=== PATIENT | male | born 1960 | race Caucasian/White ===

== ENCOUNTER 2020-08-22 19:02 | Emergency (ER) | payer BC ==
[2020-08-22] MEDS ORDERED: Sodium Chloride 0.9% 1,000 ML IV ONE (19:58)
[2020-08-22] MEDS ORDERED: Ondansetron 4 MG/2 ML SDV IVPUSH ONE (19:58)
--- NOTE | 2020-08-23 01:43 | EDM.PDOC ---
ED HPI GENERAL MEDICAL PROBLEM - General Chief Complaint: General Stated Complaint: PAIN LEVEL DUE TO CANCER Time Seen by Provider: 08/22/20 19:20 Source of Information: Reports: Patient, RN History Limitations: Reports: No Limitations - History of Present Illness INITIAL COMMENTS - FREE TEXT/NARRATIVE: ED with c/o generalized cancer pain. Primary prostate cancer with mets to bone. Has hydromorphone liquid but has not taken for past 3 days. States seen in clinic in [place] by PCP this am and was told should be admitted but declined at that time. Primary Oncologist in [place]. Requesting to be transferred to [facility] s not want to be admitted here. Last took Zofran for nausea this am. Is not out of medication yet . Admits drinking pint ETOH daily "to help with pain". No fever or chills. Reports fell out of bed 2 days ago, hit head on bedside table Denies loss of consciousness. Generalized Pain Score (Numeric/FACES): 7 - Related Data Allergies Allergy/AdvReac Type Severity Reaction Status Date / Time Penicillins Allergy Hives Verified 08/22/20 19:27 Sulfa (Sulfonamide Allergy Difficulty Verified 08/22/20 19:27 Antibiotics) Breathing Home Meds: Home Meds Alfuzosin HCl [Alfuzosin HCl ER] 10 mg PO DAILY 08/22/20 [History] Gabapentin [Neurontin] 100 mg PO DAILY 08/22/20 [History] Hydrocodone/Acetaminophen [Hydrocodone-Acetamin 5-325 mg] 5 mg PO ASDIRECTED PRN 08/22/20 [History] Omeprazole 20 mg PO DAILY 08/22/20 [History] Ondansetron [Zofran] 4 mg PO DAILY 08/22/20 [History] Past Medical History Cardiovascular History: Reports: Angina Gastrointestinal History: Reports: GERD Neurological History: Reports: Migraines Psychiatric History: Reports: Addiction Oncologic (Cancer) History: Reports: Bone, Prostate - Infectious Disease History Infectious Disease History: Reports: C-Difficile Social & Family History - Family History Family Medical History: No Pertinent Family History - Tobacco Use Tobacco Use Status *Q: Current Every Day Tobacco User Years of Tobacco use: 40 Packs/Tins Daily: 0.3 - Caffeine Use Caffeine Use: Reports: None - Alcohol Use Number of Drinks Per Day: 5 Date of Last Drink: 08/22/20 Time of Last Drink: 18:00 - Recreational Drug Use Recreational Drug Use: No ED ROS GENERAL - Review of Systems Review Of Systems: Comprehensive ROS is negative, except as noted in HPI. ED EXAM, GENERAL - Physical Exam Exam: See Below Exam Limited By: No Limitations General Appearance: Alert, No Apparent Distress Eye Exam: Bilateral Eye: EOMI Ears: Normal External Exam, Hearing Grossly Normal Nose: Normal Inspection Throat/Mouth: Normal Inspection Head: Normocephalic, Other (abrasion left upper forehead scabbed, no bruising). No: Atraumatic Neck: Normal Inspection Respiratory/Chest: No Respiratory Distress, Lungs Clear, Normal Breath Sounds Cardiovascular: Normal Peripheral Pulses, Regular Rate, Rhythm, Tachycardia GI/Abdominal: Normal Bowel Sounds, Soft, Distended, Tender (mild left lower). No: Guarding Extremities: Normal Inspection Neurological: Alert, Oriented Psychiatric: Normal Affect Skin Exam: Warm, Dry, Intact Course - Vital Signs Last Recorded V/S: Last Vital Signs Temp 96.8 F L 08/22/20 19:18 Pulse 123 H 08/22/20 19:18 Resp 16 08/22/20 19:18 BP 153/85 H 08/22/20 19:18 Pulse Ox 99 08/22/20 19:18 - Orders/Labs/Meds Meds: Medications Discontinued Medications Generic Name Dose Route Start Last Admin Trade Name Freq PRN Reason Stop Dose Admin Sodium Chloride 1,000 mls @ 200 mls/hr 08/22/20 19:58 Normal Saline IV 08/23/20 00:57 .BOLUS ONE Ondansetron HCl 4 mg 08/22/20 19:58 Ondansetron 4 Mg/2 Ml Sdv IVPUSH 08/22/20 19:59 ONETIME ONE - Re-Assessments/Exams Free Text/Narrative Re-Assessment/Exam: 08/23/20 01:45 Patient left reorted will just have family drive him to heath. Departure - Departure Time of Disposition: 20:00 Disposition: Eloped 07 Condition: Undetermined Clinical Impression: Prostate cancer Chronic pain Qualifiers: Chronic pain type: due to neoplasm Qualified Code(s): G89.3 - Neoplasm related pain (acute) (chronic) - Discharge Information *PRESCRIPTION DRUG MONITORING PROGRAM REVIEWED*: Yes *COPY OF PRESCRIPTION DRUG MONITORING REPORT IN PATIENT ANA PAULA: Yes Forms: ED Department Discharge Sepsis Event Note (ED) - Evaluation Sepsis Screening Result: No Definite Risk - Focused Exam Vital Signs: Vital Signs Temp Pulse Resp BP Pulse Ox 08/22/20 19:18 96.8 F L 123 H 16 153/85 H 99
== END 2020-08-22 20:01 | disposition left against medical advice (07) ==
LOC: DL.ED 19:02
DX: G89.3 Neoplasm related pain (acute) (chronic) (principal); C61 Malignant neoplasm of prostate; S00.81XA Abrasion of other part of head, initial encounter; R10.32 Left lower quadrant pain; K21.9 Gastro-esophageal reflux disease without esophagitis; Z72.0 Tobacco use; Z88.0 Allergy status to penicillin; Z88.2 Allergy status to sulfonamides; Z79.899 Other long term (current) drug therapy; W06.XXXA Fall from bed, initial encounter
CPT/HCPCS: 99283